=== PATIENT | female | born 1985 | race Caucasian/White ===

== ENCOUNTER 2018-09-03 15:33 | Inpatient (IN) ==
[2018-09-03] MEDS ORDERED: Naloxone 0.4 MG/ML INJ IVP PRN (15:46)
[2018-09-03] MEDS ORDERED: Metoclopramide 10 MG/2 ML VIAL IVP PRN (15:46)
[2018-09-03] MEDS ORDERED: Famotidine 20 MG/2 ML VIAL IVP PRN (15:46)
[2018-09-03] MEDS ORDERED: *HR* Nalbuphine 10 MG/ML AMPUL IVP PRN (15:46)
[2018-09-03] MEDS ORDERED: Penicillin G Potassium 5,000,000 UNIT in D5% in Water (Mini-Bag+) 100 ML IVPB ONE (15:46)
[2018-09-03] MEDS ORDERED: Ondansetron 4 MG/2 ML VIAL IVP PRN (15:46)
[2018-09-03] MEDS: Betamethasone Acet/SodPhos 6 MG/ML MDV IM SCH (16:30)
[2018-09-03] MEDS: Ringers Solution, Lactated 1,000 ML IVC SCH (16:30)
[2018-09-03 17:07] LABS: Basophils % 0.3 %; Eosinophils # 0.2 K/mcL (0.0-0.6); Eosinophils % 1.3 %; Hematocrit 34.1 % (35.3-44.9); Hemoglobin 11.1 g/dL (11.5-15.4); Immature Granulocytes % 0.6 % (0-4); Lymphocytes # 2.6 K/mcL (0.6-4.6); Lymphocytes % 19.8 %; Mean Corpuscular HGB Conc 32.6 g/dL (31.6-35.5); Mean Corpuscular Volume 85.9 fL (83.0-100.0); Mean Platelet Volume 11.5 fL (9.4-12.4); Monocytes # 0.8 K/mcL (0.0-1.3); Monocytes % 6.4 %; Neutrophils # 9.4 K/mcL (1.6-8.9); Platelet Count 297 K/mcL (140-400); Red Blood Count 3.97 M/mcL (3.82-4.97); Red Cell Distribution Width 13.3 % (11.5-14.5); Segmented Neutrophils % 71.6 %
[2018-09-03 17:08] LABS: Amphetamine Screen,Urine Negative ng/mL (Cutoff=1000); Barbiturate Screen,Urine Negative ng/mL (Cutoff=200); Benzodiazepines Screen,Urine Negative ng/mL (Cutoff=200); Cannabinoid Screen,Urine Positive ng/mL (Cutoff = 50); Cocaine Screen,Urine Negative ng/mL (Cutoff= 300); Opiate Screen,Urine Negative ng/mL (Cutoff=300); Phencyclidine Screen,Urine Negative ng/mL (Cutoff=25)
--- NOTE | 2018-09-03 18:24 | OB/GYN History & Physical ---
Date of Encounter: 09/03/18 Time of Encounter: 18:19 Assessment and Plan (1) and not yet delivered in third trimester Current visit: Yes Status: Acute (2) 33 weeks gestation of Current visit: Yes Status: Acute (3) premature rupture of membranes in third trimester Current visit: Yes Status: Acute We will give patient betamethasone 12.5 mg IM now try to repeat in 24 hours, due to unknown GBS status penicillin 5 million units started and will continue 2.5 mg until delivery Qualifiers: PROM onset of labor timing: unspecified duration between rupture of membranes and onset of labor Qualified Code(s): O42.913 - premature rupture of membranes, unspecified as to length of time between rupture and onset of labor, third trimester (4) Substance abuse affecting in third trimester, antepartum Current visit: Yes Status: Acute (5) Limited care in third trimester Current visit: Yes Status: Acute History of Present Illness HPI: Ms. Baxter is a 32 year old female 8 para 5116 at 33-6/7 weeks by a 17-5/7 week ultrasound who presents to labor and delivery with complaint of spontaneous rupture membranes at approximately 1445. She states she woke up from a nap was going to take a shower and had a gush of fluid. He continues to leak out so she came to the hospital. Patient was noted be grossly ruptured with light meconium. Patient has had minimal care. She had one visit initially at [facility] at approximately 17 weeks and 5 days. Lab work from that showed she had an elevated AFP suggestive of tube defect so cord to the patient they sent her to maternal medicine at [place] for evaluation. Patient states that they did do an ultrasound which we do not have which came back showing no spinal defect. Patient did not follow back up with [facility] [employer] states she thought she had been transferred to the maternal- medicine services. Patient however only had one other visit with them recently where they did do another ultrasound we do not have those records. She never seen anyone for any actual care other than initial visit. We do not have labs on her no one hour Glucola was obtained. Patient was positive for marijuana at the beginning of the states she uses no drugs at this time however her UDS today is positive for marijuana again. Bec ause of a history of a 23 week premature delivery baby approximately 8 days later. She states all of her other children were delivered at term and all delivered home with her. She states she is having occasional contractions but then not regular and not that uncomfortable. She denies any vaginal discharge or bleeding. Still having good movement. We did give patient first dose of steroids and started on antibiotics. She is counseled that we will be conservative unless we see something that requires us to electively augment her labor her goal is to try and sit on her try and get a second dose of steroids in her and buy some time Past Med Surg Social Fam HX - Past Medical History Source: patient Medical history: no medical history Psychiatric history: no psych history - Past Surgical History Surgical History: no surgical history Additional surgical history: wisdom teeth removed. medical in August 2016 - Social History Smoking Status: Current every day smoker Smokeless Tobacco Status: No Alcohol use: occasionally Drug use: marijuana Occupational status: unemployed Current living situation: Home - Independent Activity Level: Independent ambulation Recent Out of Country Travel Within the Last 8 Weeks: No Exposure or Possible Exposure to Illness During Travel: No - Family History Mother Adopted: No Family Member Ethnicity: Non- Living Status: Still Living Hx Family Cardiac Disorders: No Hx Family Respiratory Disorders: Yes (COPD, Asthma) Hx Family Cancer: No Hx Family GI Disorders: No Hx Family Endocrine Disorder: No Hx Family Neuromuscular Disorders: No Hx Family Neurologic Disorders: No Hx Family HEENT Disorders: No Hx Family Autoimmune Disorders: No - Additional Family History Additional family history: Family history noncontributory Obstetrical History - Pregnancies : 8 Para: 5 Term: 5 : 1 Ab's: 1 Livin Medications and Allergies Clindamycin [Cleocin] 300 mg PO Q6HR #56 capsule 07/03/18 [Rx] Mupirocin [Bactroban Oint] 1 appl TP BID #1 tube 07/03/18 [Rx] Allergy/AdvReac Type Severity Reaction Status Date / Time No Known Allergies Allergy Verified 11/02/17 09:02 Review of System OB All systems PM: reviewed and no additional remarkable complaints except as stated Exam - Constitutional Constitutional: well developed, well nourished, no acute distress, average body habitus - HEENT HEENT: EOMI, PERRL, Mucus Membranes Moist - Neck Neck exam: full ROM - Lungs Respiratory exam: CTAB - Cardiovascular Cardiovascular exam: RRR - Abdomen Abdomen: Present: bowel sounds normal, gravid ( heart tones 140s reassuring occasional contraction seen, bedside ultrasound does confirm vertex presentation) - Cervix Dilation: 2 Effacement: 50 Station: -3 Results Result Diagrams: 09/03/18 14:40 Abnormal lab results WBC 13.1 K/mcL (4.3-11.1) H 09/03/18 14:40 Hgb 11.1 g/dL (11.5-15.4) L 09/03/18 14:40 Hct 34.1 % (35.3-44.9) L 09/03/18 14:40 9.4 K/mcL (1.6-8.9) H 09/03/18 14:40 U Marijuana (THC) Screen Positive ng/mL (Cutoff = 50) H 09/03/18 14:40 All other labs normal. - VTE Reasons for not Prescribing Prophylaxis: Treatment not Indicated - Low risk for VTE
--- NOTE | 2018-09-03 19:05 | Anesthesia Evaluation PreOp ---
Date of Encounter: 09/03/18 Time of Encounter: 18:52 - Past History Planned Operation: Del, 33.6wk SROM Cardiac History: Denies any Significant Hx Pulmonary History: Smoker [employer] History: Denies Any Significant HX Other Medical History: Denies Any Significant HX, Other (currently recieving steriods for .) Anesthesia History: No Prior Anesthetic Complications, Past Anesthesia (no known family comp, "6 previous epidurals" all were fine according to patient.) Alcohol Use: occasionally Drug use: marijuana Medications and Allergies Clindamycin [Cleocin] 300 mg PO Q6HR #56 capsule 07/03/18 [Rx] Mupirocin [Bactroban Oint] 1 appl TP BID #1 tube 07/03/18 [Rx] Allergy/AdvReac Type Severity Reaction Status Date / Time No Known Allergies Allergy Verified 11/02/17 09:02 Anesthesia Results - Labs 09/03/18 14:40 Anesthesia Exam - HEENT Pupil (Motor): Pupils equal Mallampati: I Teeth: Normal Oral Opening: Greater than 3 - [employer] LOC: Oriented [employer]ENT [employer] COMMUNICATION[employer] Motor: Normal RUE, Normal LUE, Normal RLE, Normal LLE, Normal Face [employer] Sensory: Normal: RUE, LUE, RLE, LLE, Face - Cardiac Rhythm: Regular Murmur: None - Pulmonary Breath Sounds: bilateral Clear Respiratory Effort: Symmetrical Anesthesia Assess/Plan ASA Score: 2 Level of consciousness: Cooperative, Oriented Anesthetic Plan: General, Spinal, Epidural Monitoring Plan: Standard Monitors Recovery Plan: PACU
[2018-09-03] MEDS: Penicillin G Potassium 2,500,000 UNIT in 0.9 % Sodium Chloride 100 ML IVPB SCH (20:59)
[2018-09-04] MEDS: Penicillin G Potassium 2,500,000 UNIT in 0.9 % Sodium Chloride 100 ML IVPB SCH ×5 (00:11→21:19)
[2018-09-04] MEDS: Ringers Solution, Lactated 1,000 ML IVC SCH (00:13)
--- NOTE | 2018-09-04 09:19 | OB Labor Progress Note ---
Date of Encounter: 09/04/18 Time of Encounter: 09:17 Labor Progress Note - Subjective Subjective: Pt doing ok, she reports + GFM, no vb or lof. No fever or chills, rare cramps. - Vital Signs Vital Signs: AF - Heart Tones Heart Tones: RNST - [place]: Irritability - Plan Physician notified details: PT with prom of MSF yesterday. Pt to get 2nd dose of B-Meth at 16:30 today and will then begin induction. PT on PCN given fact that GBBS status is unknown and that she is premature.
[2018-09-04] MEDS: Betamethasone Acet/SodPhos 6 MG/ML MDV IM SCH (16:32)
[2018-09-04] MEDS ORDERED: Oxytocin 20 units/ LR 1000 mL 20 UNIT/1,000 ML BAG IVC SCH (17:00)
[2018-09-04] MEDS ORDERED: Ondansetron 4 MG/2 ML VIAL IVP PRN (21:34)
[2018-09-04] MEDS ORDERED: *HR* FentaNYL (PF) 100 MCG/2 ML VIAL EP ONE (21:34)
[2018-09-04] MEDS ORDERED: *HR* Ropivacaine/PF 0.2% 20 ML VIAL EP ONE (21:34)
[2018-09-04] MEDS ORDERED: Naloxone 0.4 MG/ML INJ IVP PRN (21:34)
[2018-09-04] MEDS ORDERED: EPHEDrine 50 MG/ML VIAL IVP PRN (21:34)
[2018-09-04] MEDS ORDERED: *HR* FentaNYL (PF) 100 MCG/2 ML VIAL ONE (21:43)
[2018-09-04] MEDS ORDERED: Epidural Premix (fent/bupiv) 110 ML EP SCH (21:45)
--- NOTE | 2018-09-04 22:23 | Anesthesia Procedures ---
Date of Encounter: 09/04/18 Time of Encounter: 21:45 Procedures: Anesthesia - Epidural/Spinal Patient ID/Chart reviewed: Yes Patient examined: Yes OB Eval: Gestational age: 33 OB Eval: : 8 OB Eval: Hx Para: 5 OB Eval: Dilated at (cm): 3 OB Eval: Contractions: Non-stressed pattern Consent Obtained: Yes Supplemental Oxygen: None/Room Air Site Prep: Aseptic Technique, Sterile prep and drape, Povidone-Iodine 1% Patient position: upright Local Anesthetic: Lidocaine 1% Amount of Local Anesthetic used: 3 Touhy Needle Gauge: 18 Touhy Needle Depth (cm): 5 Catheter Depth at Skin (cm): 14 Test Dose (1.5% Lido + Epi): Volume given (mls): 3 Test Dose Result: Negative Loading Dose: Fentanyl (mcg): 100 Loading Dose: Other: Ropivicaine 5ml NS 2ml Loading Dose Administered: Thru Catheter Infusion Med: 0.125% Bupivacaine w/ 2 mcg/ml Fentanyl Infusion Rate (mls/hr): [address]: Tegaderm, Tape Interspace Used: L3-L4 Loss of Resistance (ZULY): Yes Blood: No CSF: No Paresthesia: No Procedure: LARRY placed 1st pass in upright position. ZULY achieved with 0.9% normal saline. Catheter threaded with ease. VSS stable throughout. Pt stated comfort after pump initiated. Vitals + FHT's: 2145 BP 129/84 P 81 R 16 2210 BP 138/72 P 77 R 16 FHT 130s
[2018-09-05] MEDS: Penicillin G Potassium 2,500,000 UNIT in 0.9 % Sodium Chloride 100 ML IVPB SCH ×3 (01:25→05:04)
--- NOTE | 2018-09-05 01:33 | OB Labor Progress Note ---
Date of Encounter: 09/05/18 Time of Encounter: 01:31 Labor Progress Note - Subjective Subjective: called to see pt for presentation check. - Heart Tones Heart Tones: RNST - Interventions Interventions: IUOPC placed - Plan Plan: Expect
--- NOTE | 2018-09-05 08:56 | OB/GYN Procedure Note ---
Delivery - Delivery Date: 09/05/18 Provider: Joe Castellano Intrapartum events: meconium Delivery induction: other (augmented with pitocin after steroid time) Delivery augmentation: pitocin Delivery monitor: external FHT, internal uterine Anesthesia: epidural Quantitated Blood Loss: 100 - (s) A Delivery Date: 09/05/18 Delivery Time: 08:28 Presentation: vertex Position: LEONORA Route of delivery: Gender: Female Viability: Viable Pounds: 4 Ounces: 5 at 1 minute: 7 at 5 mins: 9 Shoulder Dystocia: not encountered Specimens collected: venous cord gases Placenta: spontaneous Cord: 3 umbilical vessels - Repair Episiotomy: none Laceration Description: None - Complications Delivery complications: none - Disposition Mom disposition: stable in LDR [place] disposition: stable in LDR - Comments Comments: Patient is status post normal spontaneous vaginal delivery of liveborn female infant. She did present 2 days prior to delivery premature rupture membranes and meconium-stained fluid. She was given betamethasone as well as penicillin after 24 hours or second dose of betamethasone Pitocin augmentation was begun. She is now status post normal spontaneous vaginal delivery of a liveborn female infant weighing 4 lbs. 5 oz. with Apgars of 7 at 1 minute and 9 at 5 minutes. There is no laceration. With spontaneous delivery of normal placenta with three-vessel cord. A small blood loss 1 mL mother and infant recovered in labor and delivery room.
[2018-09-05] MEDS ORDERED: Oxytocin 20 units/ LR 1000 mL 20 UNIT/1,000 ML BAG IVC SCH (10:26)
[2018-09-05] MEDS ORDERED: Ibuprofen 600 MG TABLET PO PRN (10:26)
[2018-09-05] MEDS ORDERED: Rho Immune Globulin 1,500 UNIT SYRINGE IM PRN (10:26)
[2018-09-05] MEDS ORDERED: Acetaminophen 325 MG TABLET PO PRN (10:26)
[2018-09-05] MEDS ORDERED: Prenatal Vit/FA 1 EACH TABLET PO SCH (10:26)
[2018-09-05] MEDS ORDERED: Measles/Mumps/Rubella Vacc 0.5 ML VIAL SQ PRN (10:26)
[2018-09-06 08:04] VITALS: BP 122/80
--- NOTE | 2018-09-06 08:59 | Discharge Summary ---
Date of Encounter: 09/06/18 Time of Encounter: 08:59 - Discharge Diagnosis (1) Status post vaginal delivery Priority: Primary Status: Acute Comments: Patient meeting day one milestones. Pain well-controlled with prescribed medications. Voiding without difficulty, tolerating regular diet, bleeding light. No bowel movement yet. Anticipate discharge today (2) premature rupture of membranes (PPROM) delivered, current hospitalization Priority: Secondary Status: Acute Comments: Patient was treated with antibiotics during labor. She was given a course of steroids before augmentation was performed. She is refusing her lab draws this morning to reassess her white count. - Discharge Medications Prescriptions: New Ibuprofen [Motrin] 600 mg PO Q6HR #60 tablet Acetaminophen [Tylenol] 650 mg PO Q6HR PRN #0 tablet PRN Reason: Mild Pain Prenat Vit Comb.10/Iron/FA/Dha [Vitafol-Ob+Dha Combo Pack] 1 each PO DAILY #30 combo..pkg Discontinued Clindamycin [Cleocin] 300 mg PO Q6HR #56 capsule No Action Mupirocin [Bactroban Oint] 1 appl TP BID #1 tube Home Medications: Mupirocin [Bactroban Oint] 1 appl TP BID #1 tube 07/03/18 [Rx] Acetaminophen [Tylenol] 650 mg PO Q6HR PRN #0 tablet 09/06/18 [Rx] Ibuprofen [Motrin] 600 mg PO Q6HR #60 tablet 09/06/18 [Rx] Prenat Vit Comb.10/Iron/FA/Dha [Vitafol-Ob+Dha Combo Pack] 1 each PO DAILY #30 combo..pkg 09/06/18 [Rx] Allergies/Adverse Reactions: Allergy/AdvReac Type Severity Reaction Status Date / Time No Known Allergies Allergy Verified 11/02/17 09:02 Data Procedures and tests throughout hospitalization: Laboratory Tests 09/03/18 09/03/18 14:40 14:40 WBC 13.1 H RBC 3.97 Hgb 11.1 L Hct 34.1 L MCV 85.9 MCH 28.0 MCHC 32.6 RDW 13.3 Plt Count 297 MPV 11.5 Immature Gran % 0.6 Seg Neutrophils % 71.6 Lymphocytes % 19.8 Monocytes % 6.4 Eosinophils % 1.3 Basophils % 0.3 Neutrophils # 9.4 H Lymphocytes # 2.6 Monocytes # 0.8 Eosinophils # 0.2 Basophils # 0.0 Urine Opiates Screen Negative Ur Barbiturates Screen Negative Ur Phencyclidine Scrn Negative Ur Amphetamines Screen Negative U Benzodiazepines Scrn Negative Urine Cocaine Screen Negative U Marijuana (THC) Screen Positive H Ur Drug Screen Interp See Below Date of admission: 09/03/18 15:33 Primary care physician: PCP NONE Consults: 09/05/18 10:26 Consult to Media Associate [CONS] Routine Comment: Vaginal delivery, consult needed Discharging clinician: Amira Gautam Anticipated date of discharge: 09/06/18 - Patient Status Disposition: Home, Self-Care Condition: Good Overall status at discharge: patient is progressing back to baseline - Discharge Instructions Follow Up With: NONE,PCP [Primary Care Provider] - - Diet and Activity Activity: increase activity as tolerated Diet: advance to your usual diet Hospital Course Reason for admission: labor, rupture of membranes Delivery: Episiotomy: none Laceration: none Other procedures: none complications: none Discharge diagnosis: delivery [place] baby: female Hospital course: 32 y/o F s/p at 34 weeks 1 d complicated by PPROM treated with seen doses of PCN. She received two doses of steroids before labor induced. to remain in patient for special care. UDS positive for marijuana. Patient admits to mild bleeding. She plans to bottle feed. Denies fever or increased abdominal pain. She admits to flatus and is able to tolerate regular diet. Plan to discharge today per patient request. Intrapartum events: meconium Delivery induction: other (augmented with pitocin after steroid time) Delivery augmentation: pitocin Delivery monitor: external FHT, internal uterine Anesthesia: epidural Quantitated Blood Loss: 100 - (s) A Delivery Date: 09/05/18 Infant Delivery Time: 08:28 Presentation: vertex Position: LEONORA Route of delivery: Gender: Female Viability: Viable Pounds: 4 Ounces: 5 at 1 minute: 7 at 5 mins: 9 Shoulder Dystocia: not encountered Specimens collected: venous cord gases Placenta: spontaneous Cord: 3 umbilical vessels - Repair Episiotomy: none Laceration Description: None - Complications Delivery complications: none - Disposition Mom disposition: stable in LDR [place] disposition: stable in LDR - Comments Comments: Patient is status post normal spontaneous vaginal delivery of liveborn female . She did present 2 days prior to delivery premature rupture membranes and meconium-stained fluid. She was given betamethasonex 2 as well as penicillin dose x 7 . Pitocin augmentation was begun more than 24 hours after . She is now status post normal spontaneous vaginal delivery of a liveborn female weighing 4 lbs. 5 oz. with Apgars of 7 at 1 minute and 9 at 5 minutes. There is no laceration. With spontaneous delivery of normal placenta with three-vessel cord. A small blood loss 1 mL mother and infant recovered in labor and delivery room. Time Attestation: Total time spent providing and/or coordinating discharge services: Exam - Constitutional Vitals: Temp Pulse Resp BP Pulse Ox 97.5 F L 64 16 122/80 97 09/06/18 07:30 09/06/18 07:30 09/06/18 07:30 09/06/18 07:30 09/06/18 05:57 General appearance IM: cooperative, A&O X 3, no acute distress, answers questions appropriately - Respiratory Respiratory exam: Present: CTAB. Absent: accessory muscle use, wheezes - Cardiovascular Cardiovascular exam IM: Present: RRR. Absent: diastolic murmur, systolic murmur - GI/Abdominal GI/Abdominal exam IM: firm, normal bowel sounds - Rectal Rectal exam: deferred - External exam: normal external exam Uterine Tone: Firm Uterus Position: 1 Finger Above Umbilicus - Extremities Exam Extremities exam IM: Present: full ROM, radial pulses palpable and symmetrical. Absent: pedal edema - Neurological Exam Neurological exam: alert, oriented X3
== END 2018-09-06 11:21 | disposition home or self-care (01) | DRG 560 ==
LOC: 1NENULAB → OBSVTOIN 15:33 → 1NENUOBS 09-05 11:17
PROVIDERS: ADMIT Obstetrics & Gynecology; ATTEND Obstetrics & Gynecology

== ENCOUNTER 2019-10-23 17:43 | Inpatient (IN) ==
[2019-10-23 18:30] LABS: Bacteria,Urine Moderate per hpf (None-Few); Bilirubin,Urine Negative (Negative); Blood,Urine Trace (Negative); Clarity,Urine Turbid (Clear); Color,Urine Yellow (Yellow); Glucose,Urine (UA) Normal (Normal); Ketones,Urine Negative (Negative); Leukocyte Esterase,Urine Large (Negative); Mucus,Urine Many per lpf (None-Few); Nitrite,Urine Negative (Negative); Protein,Urine 100 mg/dL (Neg-Trace); Specific Gravity,Urine > 1.030 (1.010-1.025); Squamous Epithelial Cell,Urine Many per hpf (None-Few); WBC,Urine 50-100 per hpf (0-3)
[2019-10-23 18:51] LABS: Basophils # 0.1 K/mcL (0.0-0.2); Basophils % 0.4 %; Eosinophils # 0.1 K/mcL (0.0-0.6); Eosinophils % 0.7 %; Hematocrit 33.7 % (35.3-44.9); Immature Granulocytes % 0.4 % (0-4); Lymphocytes # 2.3 K/mcL (0.6-4.6); Lymphocytes % 17.1 %; Mean Corpuscular HGB Conc 32.6 g/dL (31.6-35.5); Mean Corpuscular Hemoglobin 28.4 pg (28.0-33.3); Mean Corpuscular Volume 87.1 fL (83.0-100.0); Mean Platelet Volume 11.2 fL (9.4-12.4); Monocytes % 7.5 %; Neutrophils # 9.8 K/mcL (1.6-8.9); Platelet Count 385 K/mcL (140-400); Red Blood Count 3.87 M/mcL (3.82-4.97); Red Cell Distribution Width 12.7 % (11.5-14.5); Segmented Neutrophils % 73.9 %; White Blood Count 13.3 K/mcL (4.3-11.1)
[2019-10-23 19:05] LABS: Alanine Aminotransferase 12 Units/L (7-52); Albumin/Globulin Ratio 1.1 (1.1-2.2); Alkaline Phosphatase 81 Units/L (34-104); Aspartate Amino Transferase 13 Units/L (13-39); BUN/Creatinine Ratio 14 (6-26); Bilirubin,Direct 0.2 mg/dL (0.0-0.2); Bilirubin,Indirect 0.3 mg/dL (0.0-1.0); Bilirubin,Total 0.5 mg/dL (0.3-1.0); Blood Urea Nitrogen 9 mg/dL (6-20); Carbon Dioxide 25 mEq/L (23-29); Chloride 101 mEq/L (98-107); Globulin 3.6 g/dL (2.4-3.5); Glucose 91 mg/dL (70-105); Lipase < 3 Units/L (11-82); Osmolality,Calculated 278 (280-300); Potassium 3.6 mEq/L (3.5-5.1); Sodium 135 mEq/L (136-145); Total Protein 7.6 g/dL (6.4-8.9); eGFR For African Americans > 60 (> 60); eGFR For Non-African Americans > 60 (> 60)
[2019-10-23] MEDS ORDERED: Isovue-370 500 ML BOTTLE IVP ONE (19:37)
[2019-10-23] MEDS ORDERED: 0.9 % Sodium Chloride 1,000 ML IVC ONE ×2 (19:38→20:46)
[2019-10-23] MEDS ORDERED: levoFLOXacin 750 MG/150 ML 750 MG/150 ML BAG IVPB ONE (21:34)
[2019-10-23] MEDS ORDERED: MetroNIDAZOLE 500 MG/100 ML 500 MG/100 ML BAG IVPB ONE (21:34)
[2019-10-23 23:30] LABS: Candida DNA Not Detected (Not Detect); Gardnerella DNA DETECTED (Not Detect); Trichomonas DNA DETECTED (Not Detect)
[2019-10-23] MEDS ORDERED: Doxycycline 100 MG CAPSULE PO SCH (23:45)
[2019-10-24] MEDS ORDERED: cefOXitin 2,000 MG in Water for inj. (sterile) 20 ML IVP SCH
[2019-10-24] MEDS ORDERED: Ringers Solution, Lactated 1,000 ML ONE (00:41)
[2019-10-24] MEDS ORDERED: *HR* OxyCODONE Immed Rel 5 MG TABLET PO PRN (00:44)
[2019-10-24] MEDS ORDERED: Acetaminophen 325 MG TABLET PO PRN (00:44)
[2019-10-24] MEDS: Ringers Solution, Lactated 1,000 ML IVC SCH ×3 (00:52→17:09)
[2019-10-24] MEDS: cefOXitin 2,000 MG in Water for inj. (sterile) 20 ML IVP SCH ×4 (02:04→20:48)
[2019-10-24 05:52] LABS: Basophils # 0.1 K/mcL (0.0-0.2); Basophils % 0.4 %; Eosinophils # 0.1 K/mcL (0.0-0.6); Eosinophils % 0.9 %; Hematocrit 31.4 % (35.3-44.9); Hemoglobin 10.2 g/dL (11.5-15.4); Immature Granulocytes % 0.4 % (0-4); Lymphocytes # 2.1 K/mcL (0.6-4.6); Lymphocytes % 14.5 %; Mean Corpuscular HGB Conc 32.5 g/dL (31.6-35.5); Mean Corpuscular Hemoglobin 28.1 pg (28.0-33.3); Mean Corpuscular Volume 86.5 fL (83.0-100.0); Mean Platelet Volume 10.8 fL (9.4-12.4); Monocytes % 7.2 %; Neutrophils # 10.9 K/mcL (1.6-8.9); Platelet Count 367 K/mcL (140-400); Red Blood Count 3.63 M/mcL (3.82-4.97); Red Cell Distribution Width 12.7 % (11.5-14.5); Segmented Neutrophils % 76.6 %; White Blood Count 14.2 K/mcL (4.3-11.1)
[2019-10-24] MEDS: MetroNIDAZOLE 500 MG/100 ML 500 MG/100 ML BAG IVPB SCH ×2 (06:57→17:04)
[2019-10-24] MEDS ORDERED: MetroNIDAZOLE 500 MG/100 ML 500 MG/100 ML BAG IVPB SCH ×2 (07:00)
[2019-10-24] MEDS: Doxycycline 100 MG CAPSULE PO SCH ×2 (08:40→20:48)
[2019-10-24 13:11] LABS: Amphetamine Screen,Urine Positive ng/mL (Cutoff=1000); Barbiturate Screen,Urine Negative ng/mL (Cutoff=200); Benzodiazepines Screen,Urine Negative ng/mL (Cutoff=200); Cannabinoid Screen,Urine Positive ng/mL (Cutoff = 50); Cocaine Screen,Urine Negative ng/mL (Cutoff= 300); Opiate Screen,Urine Negative ng/mL (Cutoff=300); Phencyclidine Screen,Urine Negative ng/mL (Cutoff=25)
[2019-10-24] MEDS: Ibuprofen 600 MG TABLET PO PRN (20:48)
[2019-10-24] MEDS: Ondansetron 4 MG/2 ML VIAL IVP PRN (22:31)
[2019-10-25] MEDS: MetroNIDAZOLE 500 MG/100 ML 500 MG/100 ML BAG IVPB SCH ×4 (00:18→23:41)
[2019-10-25] MEDS: Ringers Solution, Lactated 1,000 ML IVC SCH ×3 (02:26→20:07)
[2019-10-25] MEDS: cefOXitin 2,000 MG in Water for inj. (sterile) 20 ML IVP SCH ×4 (02:27→20:07)
[2019-10-25] MEDS: Doxycycline 100 MG CAPSULE PO SCH ×2 (08:28→20:07)
[2019-10-25 10:39] LABS: Basophils % 0.3 %; Eosinophils # 0.2 K/mcL (0.0-0.6); Eosinophils % 1.3 %; Hematocrit 29.6 % (35.3-44.9); Hemoglobin 9.6 g/dL (11.5-15.4); Immature Granulocytes % 0.4 % (0-4); Lymphocytes # 1.7 K/mcL (0.6-4.6); Lymphocytes % 14.4 %; Mean Corpuscular HGB Conc 32.4 g/dL (31.6-35.5); Mean Corpuscular Hemoglobin 28.6 pg (28.0-33.3); Mean Corpuscular Volume 88.1 fL (83.0-100.0); Mean Platelet Volume 11.2 fL (9.4-12.4); Monocytes # 0.9 K/mcL (0.0-1.3); Monocytes % 7.2 %; Platelet Count 332 K/mcL (140-400); Red Blood Count 3.36 M/mcL (3.82-4.97); Red Cell Distribution Width 12.8 % (11.5-14.5); Segmented Neutrophils % 76.4 %; White Blood Count 11.8 K/mcL (4.3-11.1)
[2019-10-25 14:14] LABS: Albumin 2.9 g/dL (3.5-5.7); Albumin/Globulin Ratio 1.1 (1.1-2.2); Bilirubin,Direct 0.1 mg/dL (0.0-0.2); Bilirubin,Indirect 0.2 mg/dL (0.0-1.0); Bilirubin,Total 0.3 mg/dL (0.3-1.0); Globulin 2.6 g/dL (2.4-3.5); Total Protein 5.5 g/dL (6.4-8.9)
[2019-10-25] MEDS: Ondansetron 4 MG/2 ML VIAL IVP PRN (17:20)
[2019-10-25] MEDS: Ibuprofen 600 MG TABLET PO PRN (17:20)
[2019-10-26] MEDS: cefOXitin 2,000 MG in Water for inj. (sterile) 20 ML IVP SCH ×2 (03:26→07:46)
[2019-10-26] MEDS: Ringers Solution, Lactated 1,000 ML IVC SCH (03:28)
[2019-10-26] MEDS: Ondansetron 4 MG/2 ML VIAL IVP PRN (03:56)
[2019-10-26] MEDS: Doxycycline 100 MG CAPSULE PO SCH (07:46)
[2019-10-26] MEDS: MetroNIDAZOLE 500 MG/100 ML 500 MG/100 ML BAG IVPB SCH (07:47)
[2019-10-26 07:59] VITALS: BP 113/75
[2019-10-26] MEDS ORDERED: Etonogestrel 68 MG IMPLANT IL ONE (09:23)
[2019-10-26 10:17] LABS: Hematocrit 31.1 % (35.3-44.9); Mean Corpuscular HGB Conc 32.2 g/dL (31.6-35.5); Mean Corpuscular Hemoglobin 28.5 pg (28.0-33.3); Mean Corpuscular Volume 88.6 fL (83.0-100.0); Mean Platelet Volume 11.3 fL (9.4-12.4); Platelet Count 377 K/mcL (140-400); Red Blood Count 3.51 M/mcL (3.82-4.97); Red Cell Distribution Width 12.8 % (11.5-14.5); White Blood Count 12.9 K/mcL (4.3-11.1)
[2019-10-26 13:30] LABS: Hepatitis B Surface Antigen Nonreactive (Nonreactive)
[2019-10-26 13:58] LABS: HIV-1&2 Antibody & p24 Ag Nonreactive (Nonreactive)
[2019-10-26 13:59] LABS: Hepatitis C Virus Antibody Nonreactive (Nonreactive)
== END 2019-10-26 12:30 | disposition home or self-care (01) | DRG 758 ==
LOC: 1NENUOBS 17:43 → EMEROOARM 17:43 → 1NENUOBS 10-24 00:29
PROVIDERS: ADMIT Obstetrics & Gynecology; ATTEND Obstetrics & Gynecology